=== PATIENT | female | born 1995 | race Caucasian/White ===

== ENCOUNTER 2024-07-26 01:02 | Emergency (ER) | payer OTHER ==
[~2024-07-26] VITALS: Ht 162.6 cm; Wt 69.9 kg
[2024-07-26 01:17] VITALS: BP 108/72; TEMP 98.4; O2SAT 98
== END 2024-07-26 03:20 | disposition home or self-care (01) ==
LOC: ER 01:04
DX: J06.9 Acute upper respiratory infection, unspecified (principal)
CPT/HCPCS: 71045-TC